=== PATIENT | female | born 1990 | race Two or more races ===

== ENCOUNTER 2024-12-23 01:34 | Emergency (ER) | payer MEDICAID ==
[~2024-12-23] VITALS: Ht 162.6 cm; Wt 61.4 kg
[2024-12-23 01:40] VITALS: BP 136/95; PULSE 120; RESP 20; TEMP 99; O2SAT 96
[2024-12-23 01:59] LABS: PLATELET COUNT (AUTO) 249 K/uL (150-450); RED BLOOD CELL COUNT(AUTO) 4.63 MIL/uL (4.00-5.20); RED CELL DISTRIBUTION WIDTH 13.0 % (11.5-14.5); WHITE BLOOD COUNT (AUTO) 9.7 K/uL (4.5-11.0)
[2024-12-23 02:02] LABS: COVID AG,FIA SOURCE NASAL SWAB
[2024-12-23 02:11] LABS: SARS-COV2 (COVID) ANTIGEN,FIA Negative (Negative)
[2024-12-23 02:13] LABS: INFLUENZA TYPE A NEGATIVE FOR TYPE A (NEGATIVE); INFLUENZA TYPE B NEGATIVE FOR TYPE B (NEGATIVE)
[2024-12-23 02:23] LABS: CALCIUM, TOTAL 8.5 mg/dL (8.8-10.5); CREATININE 0.75 mg/dL (0.60-1.30); GLOMERULAR FILTR. RATE CALC > 60 mL/min (>60); GLUCOSE,RANDOM 116 mg/dL (70-110); SODIUM SERUM 136 mmol/L (136-145); UREA NITROGEN, BLOOD 16 mg/dL (7-18)
[2024-12-23] MEDS: ACETAMINOPHEN 1000 MG/ISO-OSM 100 ML IV ONE (02:43)
[2024-12-23] MEDS: SODIUM CHLORIDE 0.9% 1,000 ML IV ONE (02:43)
[2024-12-23] MEDS: KETOROLAC TROMETHAMINE 30 MG/ML VIAL IVP ONE (02:43)
[2024-12-23] MEDS: METOCLOPRAMIDE HCL 5 MG/ML 2 ML VIAL IVP ONE (02:43)
[2024-12-23 03:24] LABS: APPEARANCE,URINE CLEAR (CLEAR); GLUCOSE, URINE (UA) TRACE mg/dL (NEGATIVE); LEUKOCYTE ESTERASE ,URINE NEGATIVE (NEGATIVE); NITRATE,URINE NEGATIVE (NEGATIVE); OCCULT BLOOD,URINE SMALL (NEGATIVE); SPECIFIC GRAVITIY, URINE 1.023 (1.003-1.030)
[2024-12-23 03:35] LABS: SQUAMOUS EPITHELIAL CELL,UR Few /LPF (None Seen)
[2024-12-23] MEDS ORDERED: METO5TAB95 PO (04:06)
== END 2024-12-23 04:15 | disposition home or self-care (01) ==
LOC: EMS 01:34
DX: G43.909 Migraine, unspecified, not intractable, without status migrainosus (principal); B34.9 Viral infection, unspecified; Z20.822 Contact with and (suspected) exposure to COVID-19
CPT/HCPCS: 99284; 96374; 96375; 96361; 87426; 80048; 81001; 84703; 85025; 87804; 36415; J1885; J2765; J7030; J0131; 96365